=== PATIENT | male | born 1950 | race Caucasian/White ===

== ENCOUNTER 2020-09-11 17:33 | Emergency (ER) | payer MEDICARE, BC ==
[~2020-09-11] VITALS: Ht 188 cm; Wt 108.9 kg
[~2020-09-11 17:33] MED LIST: AMLO2.5T2 PO; ASPI-845 PO; ATOR80TA PO; CALC-793 PO; CLOP75TA15 PO; ESCI10TA PO; FINA5TAB11 PO; FLO0.4C PO; INSU100C4 SQ; ISOS30TA84 PO; LANTUS SUBCUT; LORA1TAB PO; LOSA1TAB41 PO; METF500T PO; NEBI5TAB10 PO; NITR0.4T SL; PREG150C PO; SITA50TA PO; VITA-134
[2020-09-11 17:48] VITALS: BP 183/100
[2020-09-11] MEDS ORDERED: TETanus/Pertussis (Acell)/Diphther VAC/PF (Tdap-Adult) 0.5ml syringe IMVAC ONE (19:05)
[2020-09-11] MEDS ORDERED: LIDOcaine 1% W/epiNEPHrine 1:200,000 10ml vial IJ ONE (19:05)
--- NOTE | 2020-09-11 19:51 | NUR ---
BREAKING PRIMARY RN FOR A BREAK- WILL CONT TO MONITOR.
[2020-09-11] MEDS ORDERED: CEPH250T PO (20:32)
== END 2020-09-11 21:07 | disposition home or self-care (01) ==
LOC: ER 17:34
DX: S61.411A Laceration without foreign body of right hand, initial encounter (principal); I25.10 Atherosclerotic heart disease of native coronary artery without angina pectoris; E78.00 Pure hypercholesterolemia, unspecified; I10 Essential (primary) hypertension; E11.9 Type 2 diabetes mellitus without complications; G89.29 Other chronic pain; F17.200 Nicotine dependence, unspecified, uncomplicated; Z98.61 Coronary angioplasty status; Z95.1 Presence of aortocoronary bypass graft; F12.90 Cannabis use, unspecified, uncomplicated; Z79.899 Other long term (current) drug therapy; Z79.82 Long term (current) use of aspirin; Z98.890 Other specified postprocedural states; Z79.4 Long term (current) use of insulin; W26.8XXA Contact with other sharp object(s), not elsewhere classified, initial encounter; Y93.89 Activity, other specified; Y92.89 Other specified places as the place of occurrence of the external cause; Y99.8 Other external cause status
CPT/HCPCS: 12002; 90471; 90715; 99283

== ENCOUNTER 2023-02-10 08:01 | Day surgery (SDC) | payer MEDICARE, BC ==
[2023-02-10] VITALS (9 sets, daily range): BP systolic 110–136; BP diastolic 65–85; PULSE 78–85; RESP 12–15; TEMP 97.7; O2SAT 93–100
[~2023-02-10] VITALS: Ht 188 cm; Wt 74.5 kg
[~2023-02-10 08:01] MED LIST changes: +ALBU8.5H17 INH; -AMLO2.5T2 PO; -ASPI-845 PO; +ASPI81TA52 PO; +ATOR-2 PO; -ATOR80TA PO; -CALC-793 PO; +CHOL500050 PO; -CLOP75TA15 PO; +CLOP75TA34 PO; -ESCI10TA PO; +ESCI20TA17 PO; -FINA5TAB11 PO; -INSU100C4 SQ; +INSU100I71 SQ; -ISOS30TA84 PO; -LANTUS SUBCUT; +LATA2.5D14 EACHEYE; -LORA1TAB PO; -LOSA1TAB41 PO; +LOSA50TA64 PO; +METF-438 PO; -METF500T PO; +NEBI10TA2 PO; -NEBI5TAB10 PO; -NITR0.4T SL; +NITR0.4T51 SL; +OMEG-79 PO; +POTA10CA85 PO; -PREG150C PO; +PREG150C47 PO; -SITA50TA PO; +SPIR25TA5 PO; -VITA-134; +VITA-288 PO
[2023-02-10] MEDS ORDERED: normal saline 1000ml 1,000 ML IV PRN (08:30)
[2023-02-10 09:20] LABS: BASOPHILS % (AUTO) 0.7 % (0-1); EOSINOPHILS # (AUTO) 0.1 X10'3 (0-0.9); EOSINOPHILS % (AUTO) 1.1 % (0-6); HEMATOCRIT 45.5 % (42.0-52.0); HEMOGLOBIN 15.3 g/dl (14.0-17.9); LYMPHOCYTES # (AUTO) 0.7 X10'3 (1.1-4.8); LYMPHOCYTES % (AUTO) 13.3 % (21-51); MEAN CORPUSCULAR HEMOGLOBIN 32.3 PG (27.0-31.0); MEAN CORPUSCULAR HGB CONC 33.7 g/dL (33.0-36.5); MEAN CORPUSCULAR VOLUME 95.9 FL (78-98); MEAN PLATELET VOLUME 9.5 FL (7.4-10.4); MONOCYTES # (AUTO) 0.6 X10'3 (0-0.9); MONOCYTES % (AUTO) 10.8 % (2-12); NEUTROPHILS # (AUTO) 4.1 X10'3 (1.8-7.7); NEUTROPHILS % (AUTO) 74.1 % (42-75); PLATELET COUNT 168 X10'3 (140-440); RED BLOOD COUNT 4.75 X10'6 (4.70-6.10); RED CELL DISTRIBUTION WIDTH 18.1 % (11.5-14.5); WHITE BLOOD COUNT 5.5 X10'3 (4.5-11.0)
[2023-02-10] MEDS ORDERED: midazolam 1 mg/ML 2ml injection ONE (09:33)
[2023-02-10] MEDS ORDERED: fentaNYL/PF 50MCG/1 ML 2ML syringe ONE (09:33)
[2023-02-10] MEDS ORDERED: iohexol 300 MG/1 ML 50ml polymer ONE (09:33)
[2023-02-10] MEDS ORDERED: Lasix PO (09:48)
[2023-02-10] MEDS ORDERED: Morphine PO (09:48)
[2023-02-10 10:14] LABS: INR 1.2 INR; PROTHROMBIN TIME 12.6 SECONDS (9.0-12.0)
[2023-02-10] MEDS ORDERED: glucagon, human recombinant 1mg kit ONE (11:11)
== END 2023-02-10 14:35 | disposition home or self-care (01) ==
LOC: SSTAY O 08:01
PROVIDERS: ATTEND Radiology Vascular & Interventional Radiology
DX: C01 Malignant neoplasm of base of tongue (principal); M19.90 Unspecified osteoarthritis, unspecified site; I10 Essential (primary) hypertension; E11.39 Type 2 diabetes mellitus with other diabetic ophthalmic complication; H40.9 Unspecified glaucoma; Z95.1 Presence of aortocoronary bypass graft; Z87.891 Personal history of nicotine dependence; Z72.89 Other problems related to lifestyle; F12.90 Cannabis use, unspecified, uncomplicated; Z79.899 Other long term (current) drug therapy; Z79.01 Long term (current) use of anticoagulants; Z79.82 Long term (current) use of aspirin; Z79.84 Long term (current) use of oral hypoglycemic drugs
CPT/HCPCS: 36415; 49440; 82948; 85025; 85610; 99152; 99153; C1713; J1610; J2250; J3010; J7030; Q9967; A4620; B4087